=== PATIENT | male | born 1980 | race Hispanic/Latino ===

== ENCOUNTER 2018-03-05 18:53 | Emergency (ER) | payer SELFPAY ==
[~2018-03-05 18:53] MED LIST: ISOVUE-370 76%-LOCM 1 ML ONE
[2018-03-05 19:27] LABS: #Basophils 0.1 thou/uL (0.0-0.2); #Eosinphils 0.1 thou/uL (0.0-0.7); #Lymphocytes 2.4 thou/uL (1.20-3.40); #Monocytes 0.6 thou/uL (0.11-0.59); #Neutrophils 4.3 thou/uL (1.40-6.50); %Basophils 1.7 % (0.0-1.0); %Lymphocytes 31.8 % (21.0-51.0); %Monocytes 8.2 % (0.0-10.0); %Neutrophils 57.4 % (42.0-75.0); Mean Corpuscular HGB CONC 35.5 g/dL (32.0-36.0); Mean Corpuscular Hemoglobin 30.5 pg (27.0-31.0); Mean Corpuscular Volume 85.9 fL (78.0-98.0); Mean Platelet Volume 10.4 fL (7.4-10.4); Platelet Count 118 thou/uL (130-400); Red Blood Cell (RBC) Count 5.24 mill/uL (4.70-6.10); White Blood Cell (WBC) Count 7.5 thou/uL (4.8-10.8)
[2018-03-05] MEDS ORDERED: Ondansetron HCl/PF 4 MG/2 ML Vial ONE (19:43)
[2018-03-05 19:52] LABS: ALT (SGPT) 26 U/L (8-55); AST (SGOT) 28 U/L (5-34); Albumin 4.3 g/dL (3.5-5.0); Alcohol Less than 10 mg/dL (Less than 10); Alkaline Phosphatase 111 U/L (40-150); Anion Gap 11 mmol/L (10-20); BUN (Urea Nitrogen) 26 mg/dL (8.9-20.6); Bilirubin, Total 0.4 mg/dL (0.2-1.2); Calc. Creatinine Clearance 0 mL/min (70-130); Carbon Dioxide 25 mmol/L (22-29); Chloride 105 mmol/L (98-107); Estimated GFR-MDRD 86; Globulin 3.3 g/dL (2.4-3.5); Glucose 95 mg/dL (70-105); Potassium 3.7 mmol/L (3.5-5.1); Protein, Total 7.6 g/dL (6.0-8.3); Sodium 137 mmol/L (136-145)
--- NOTE | 2018-03-05 20:07 | RAD ---
FOUR VIEWS LEFT ELBOW: 03/05/18 HISTORY: Left elbow pain after being hit with a metal gate. FINDINGS: The lateral view is rotated, but no obvious fracture or dislocation is seen involving the left elbow. There is suggestion of minimal subcutaneous soft tissue swelling posterior to the left elbow. IMPRESSION: Mild subcutaneous soft tissue swelling posterior to the left elbow, but no definite fracture is visua lized. POS: [facility]
--- NOTE | 2018-03-05 20:09 | CT ---
NONCONTRAST CT HEAD: 03/05/18 HISTORY: Head injury. 400 lb steel gate fell on top of patient. Patient also complains of pain at back of neck . Dizziness. Trauma. COMPARISON: None available. FINDINGS: There is no evidence of a hemorrhage, acute infarction, mass effect, or midline shift. The ventricula r system is normal in size, shape and position. No calvarial fracture is seen. The visualized paranas al sinuses and mastoid air cells are clear. IMPRESSION: No acute intracranial abnormality demonstrated. POS: [facility]
--- NOTE | 2018-03-05 20:11 | CT ---
NONCONTRAST CT CERVICAL SPINE: 03/05/18 HISTORY: Trauma. 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 Patient complains of pain in back of neck and extending inferiorly. TECHNIQUE: Contiguous axial CT images are obtained through the cervical spine from the skull base to the T1-2 le jb. Sagittal and coronal reformat images are provided. FINDINGS: There is no fracture or subluxation involving the cervical spine. Alignment of the cervical spine is within normal limits. Prevertebral soft tissues are within normal limits. The visualized lung apices are clear. IMPRESSION: No acute fracture or subluxation involving the cervical spine. POS: [facility]
--- NOTE | 2018-03-05 20:22 | CT ---
CT THORAX WITH IV CONTRAST CT ABDOMEN AND PELVIS WITH IV CONTRAST CT THORACIC AND LUMBAR SPINE 03/05/18 HISTORY: Trauma. A 400 lb. steel gate fell on top of patient. Patient has back pain as well as pain in hip an d legs. CT THORAX: There is dependent atelectasis at the right lung base. A calcified granuloma is seen in the superior segment of the left lower lobe. Minimal thorax or pleural effusion is identified. There is no evidence of an aortic injury. Mediastinal structures have a normal CT appearance. There is no evidence of a fracture. CT ABDOMEN AND PELVIS: The liver, spleen, pancreas, bilateral adrenal glands, kidneys, and urinary bladder demonstrate a nor mal CT appearance. There are no findings to suggest an aortic injury. No free fluid or free intraperitoneal gas is seen in the abdomen or pelvis. No fracture is identified. CT THORACIC AND LUMBAR SPINE: Vertebral body heights are within normal limits. There is no fracture or subluxation. There is no bon y encroachment on the central spinal canal or neural foramina of the thoracic or lumbar spine. IMPRESSION: 1. No acute findings are seen in the chest, abdomen, or pelvis. 2. No evidence of a fracture or subluxation involving the thoracic or lumbar spine. POS: [facility]
== END 2018-03-05 21:05 | disposition home or self-care (01) ==
LOC: ERS 18:53
DX: S20.211A Contusion of right front wall of thorax, initial encounter (principal); S50.312A Abrasion of left elbow, initial encounter; W20.8XXA Other cause of strike by thrown, projected or falling object, initial encounter; Y92.69 Other specified industrial and construction area as the place of occurrence of the external cause; Y99.0 Civilian activity done for income or pay
CPT/HCPCS: 70450; 71260; 72125; 74177; 80053; 80307; 85025; 96361; 96374; 96375; J2270; J2405

== ENCOUNTER 2018-03-06 17:34 | Emergency (ER) | payer SELFPAY ==
[2018-03-06] MEDS ORDERED: Ketorolac Tromethamine 30 MG/ML VIAL ONE (18:51)
== END 2018-03-06 19:45 | disposition home or self-care (01) ==
LOC: ERS 17:34
DX: S39.012A Strain of muscle, fascia and tendon of lower back, initial encounter (principal); S20.212A Contusion of left front wall of thorax, initial encounter; W20.8XXA Other cause of strike by thrown, projected or falling object, initial encounter
CPT/HCPCS: 96372; J1885